=== PATIENT | female | born 1995 | race Two or more races ===

== ENCOUNTER 2017-06-17 18:20 | Emergency (ER) | payer OTHER ==
[~2017-06-17] VITALS: Ht 162.6 cm; Wt 73.5 kg
[2017-06-17 18:34] VITALS: BP 126/87
[2017-06-17] MEDS ORDERED: KETOROLAC 30 MG/1 ML IM ONE (19:00)
[2017-06-17] MEDS ORDERED: KETOROLAC 30 MG/1 ML ONE ×2 (19:27→19:42)
== END 2017-06-17 20:24 | disposition home or self-care (01) ==
LOC: ED 19:45
DX: S39.012A Strain of muscle, fascia and tendon of lower back, initial encounter (principal); Z88.6 Allergy status to analgesic agent; Z88.8 Allergy status to other drugs, medicaments and biological substances; X58.XXXA Exposure to other specified factors, initial encounter; Y93.89 Activity, other specified; Y92.89 Other specified places as the place of occurrence of the external cause; Y99.2 Volunteer activity
CPT/HCPCS: 72110; 96372; 99284; J1885; J7512